=== PATIENT | female | born 1945 | race Caucasian/White ===

== ENCOUNTER 2018-05-06 11:18 | Outpatient (REF) | payer MEDICARE, BC, SELFPAY ==
--- NOTE | 2018-05-06 10:00 | PAPFT_PTH ---
PATIENT: Rosa Hoskins LOC: [facility] U#:[id number] AGE/SX: 72/F ROOM: RE05/06/[address]: MARYANNE Lo : 1945 BED: DIS: 05/06/2018 SPEC #: [id number] RECD: 05/06/18 13:07 STATUS: BONILLA REScarlet #: [id number] CARMEN: 05/06/18 10:[address]: Shannon Mae DEPT: [facility] Cytology RECD BY: Su Olvera Tissues: 1 - CX/ENDOCX FOR PAP SMEARS Procedures: PAP THIN PREP/UVM Screening Comments: [id number]
== END 2018-05-06 11:38 ==
LOC: LBN 11:18
PROVIDERS: Visit Provider Nurse Practitioner Family
DX: R10.2 Pelvic and perineal pain (principal); Z12.4 Encounter for screening for malignant neoplasm of cervix
CPT/HCPCS: 88142; 87086

== ENCOUNTER 2018-06-20 00:38 | Outpatient (CLI) | payer MEDICARE, BC, SELFPAY ==
--- NOTE | 2018-06-20 07:51 | DI.US_ITS ---
SYMPTOMS/DIAGNOSIS: PELVIC PAIN, R10.2 PELVIC ULTRASOUND: There are no prior comparison exams. A transabdominal exam was performed. The patient refused transvaginal imaging. The uterus measures 8.3 x 2 x 4.8 cm. The endometrial stripe measures 2 mm in thickness. No fibroids are seen. The ovaries are normal in size and appearance. No cysts or masses are seen. There is no evidence of free fluid. The bladder is unremarkable. There is a question of mild right hydronephrosis vs prominent extrarenal pelvis. A CT could be performed for further evaluation if clinically indicated.
== END 2018-06-20 00:58 ==
PROVIDERS: PCP Neuromusculoskeletal Medicine & OMM; Visit Provider Nurse Practitioner Family
DX: R10.2 Pelvic and perineal pain (principal)
CPT/HCPCS: 76856

== ENCOUNTER 2021-10-02 11:14 | Outpatient (CLI) | payer MEDICARE, SELFPAY ==
--- NOTE | 2021-10-02 10:37 | DI.RAD_ITS ---
Exam(s) XR KNEE LT 2V AP,LAT EXAM: XR KNEE LT 2V AP,LAT CLINICAL HISTORY: knee pain. TECHNIQUE: 2D digital imaging was performed. COMPARISON: CR XR KNEE RT 2V AP,LAT from 10/02/2021 CR XR STANDING ALIGNMENT from 10/02/2021 FINDINGS: Two views-AP and lateral weight-bearing views There is elgj-oz-loyx narrowing of the medial compartment of the left knee mild medial subluxation of the femoral condyles relative to the tibial plateau. There is no significant narrowing of the later al compartment although there is marginal osteophyte off the lateral aspect the tibial plateau. Some degenerative change also noted in the patellofemoral compartment. No obvious joint effusion. IMPRESSION: Degenerative changes as described above, most prominent in the medial compartment. DATA REPOSITORY: RADIATION DOSE DELIVERED:
--- NOTE | 2021-10-02 10:37 | DI.RAD_ITS ---
Exam(s) XR KNEE RT 2V AP,LAT EXAM: XR KNEE RT 2V AP,LAT CLINICAL HISTORY: knee pain. TECHNIQUE: 2D digital imaging was performed. COMPARISON: CR XR KNEE LT 2V AP,LAT from 10/02/2021 CR XR STANDING ALIGNMENT from 10/02/2021 FINDINGS: Two views-AP and lateral weight-bearing There is bhjr-eb-mttx narrowing of medial compartment, similar to the opposite side and there is also mild medial subluxation femoral condyles on the tibial plateau also on this side. No significant na rrowing of the lateral compartment. Significant degenerative changes patellofemoral compartment. Th ere is also a joint effusion noted. IMPRESSION: Degenerative changes in the medial patellofemoral compartments. Joint effusion. DATA REPOSITORY: RADIATION DOSE DELIVERED:
--- NOTE | 2021-10-02 10:45 | DI.RAD_ITS ---
Exam(s) XR STANDING ALIGNMENT EXAM: XR STANDING ALIGNMENT CLINICAL HISTORY: knee pain. TECHNIQUE: 2D digital imaging was performed. COMPARISON: No exams were available for comparison FINDINGS: Four views There are no fractures. There is honb-fh-thwt narrowing of medial compartments of both knees. Later al compartments exhibit normal height bilaterally although there marginal osteophytes lateral. Hips appear unremarkable. Ankles unremarkable. Bone density normal. No osseous lesions. IMPRESSION: Vuhn-li-efdx narrowing compartment of both knees. Hips appear unremarkable. DATA REPOSITORY: RADIATION DOSE DELIVERED:
== END 2021-10-02 11:15 | disposition home or self-care (01) ==
LOC: DIORS 11:14
PROVIDERS: PCP Neuromusculoskeletal Medicine & OMM; Visit Provider Physician Assistant
DX: M17.11 Unilateral primary osteoarthritis, right knee (principal); M17.12 Unilateral primary osteoarthritis, left knee
CPT/HCPCS: 99202; 73560; 77073

== ENCOUNTER → 2021-12-02 12:52 | Outpatient (BNVA) | payer MEDICARE, SELFPAY | PROVIDERS: PCP Neuromusculoskeletal Medicine & OMM; Referring Provider Neuromusculoskeletal Medicine & OMM; Visit Provider Physician Assistant | DX: Z01.818 Encounter for other preprocedural examination (principal); M17.11 Unilateral primary osteoarthritis, right knee ==

== ENCOUNTER 2021-12-15 03:53 | Outpatient (CLI) | payer MEDICARE, SELFPAY ==
[2021-12-15 10:29] LABS: HCT 42.8 % (36.0-46.0); HGB 13.7 g/dL (11.2-15.7); MCH 28.4 pg (27.0-33.0); MCV 89 fL (80-95); MPV 10.2 fL (8.0-11.0); Platelet Count 258 10^3/uL (130-400); RBC 4.82 10^6/uL (3.93-5.22); RDW 13.6 % (11.7-14.6); RDW-SD 43.9 fL; WBC 8.03 10^3/uL (4.4-10.8)
[2021-12-15 11:12] LABS: Anion Gap 8.5 mmol/L (3-11); BUN 29 mg/dL (7-18); CO2 30.5 mmol/L (21.0-32.0); CREATININE 1.1 mg/dL (0.55-1.02); Calcium 9.5 mg/dL (8.5-10.1); Chloride 103 mmol/L (98-107); Estimated GFR 48.42 (mL/min/1.73m2); Glucose 110 mg/dL (74-106); Potassium 4.5 mmol/L (3.5-5.1); Sodium 142 mmol/L (136-145)
[2021-12-15 12:49] LABS: Source Nasal/Nares
[2021-12-15 15:10] LABS: COVID-19 PCR Negative (Negative)
== END 2021-12-15 03:54 | disposition home or self-care (01) ==
LOC: LBO 03:53
PROVIDERS: PCP Neuromusculoskeletal Medicine & OMM; Visit Provider Student in an Organized Health Care Education/Training Program
DX: M17.11 Unilateral primary osteoarthritis, right knee (principal); Z01.818 Encounter for other preprocedural examination; Z20.822 Contact with and (suspected) exposure to COVID-19
CPT/HCPCS: 36415; 80048; 85027; 87635

== ENCOUNTER 2021-12-16 09:28 | Day surgery (SDC) | payer MEDICARE, SELFPAY ==
[2021-12-16] VITALS (11 sets, daily range): BP systolic 115–157; BP diastolic 46–81; PULSE 64–84; RESP 10–21; TEMP 36.1–37; O2SAT 94–98; BMI 38.7
--- NOTE | 2021-12-16 06:37 | W.PM.DSUDISC ---
Discharge Plan Disposition Patient Disposition: HOME Condition: Good Discharge Details Reason For Visit: Right TKA Attending Provider: Lucian Barnard Primary Care Provider: Sridhar Trinidad Home Meds and New Rx's Prescriptions: New acetaminophen 500 mg capsule 1,000 mg PO Q8H PRN PRNQty: 90 0RF aspirin 81 mg tablet,delayed release (DR/EC) 81 mg PO BID Qty: 60 0RF celecoxib [Celebrex] 200 mg capsule 200 mg PO BID Qty: 60 0RF pantoprazole [Protonix] 40 mg tablet,delayed release (DR/EC) 40 mg PO DAILY Qty: 30 0RF gabapentin 300 mg capsule 300 mg PO QHS Qty: 14 0RF oxycodone 5 mg tablet 5 mg PO Q4H PRNQty: 18 0RF ondansetron 4 mg tablet,disintegrating 4 mg PO Q8H PRNQty: 10 0RF Continued multivitamin [Daily Multi-Vitamin] tablet 1 tab PO DAILY aspirin [Adult Low Dose Aspirin] 81 mg tablet,delayed release (DR/EC) 81 mg PO DAILY ascorbic acid (vitamin C) 250 mg tablet,chewable 250 mg PO DAILY lisinopril 40 mg tablet 40 mg PO DAILY glucosamine-chondroitin [Osteo Bi-Flex] 250-200 mg tablet 2 tab PO TID Label Comments: pt stated she is no longer taking it ICaps AREDS2 250 mg-200 unit -12.5 mg-1 mg capsule 1 cap PO DAILY magnesium oxide 500 mg tablet 500 mg PO DAILY omega 0-xic-qdl-fish oil [Fish Oil] 1,000 mg (120 mg-180 mg) capsule 1 cap PO DAILY Coricidin HBP Cold and Flu 2-325 mg tablet 1 tab PO ONCE Discharge Instructions Additional Instructions: Total Knee Discharge Instructions Activity: The most important activity is to walk. You should try to take short walks a few times a day. It is important that when resting you work on keeping the knee straight. Avoid putting a pillow behind the knee as this will encourage flexion. Work on range of motion exercises as provided by Physical Therapy. - Start outpatient physical therapy within 2 weeks. - You should wear the HERO hose on both legs for 2 weeks. You may remove these at night. You may also use any compression sock in place of the HERO hose. - Utilize [employer] to review exercises, see videos on exercises and obtain basic information pertaining to your surgery and your recovery. Dressing: Remove the Lucius wrap by 2 days after your surgery and put on the HERO stocking given to you from the hospital. Keep the surgical dressing (underneath the LUCIUS wrap) in place for at least one week. After the first week it may be removed and replaced with light gauze and tape or nothing. The wound and dressing may get wet after 3 days but avoid soaking the dressing or otherwise it will need to be changed. Many people prefer covering the dressing with cling wrap (saran wrap) to minimize it from getting soaked. If it gets wet, just pat dry. If it starts to peel off then it will need to be changed. Medications: - You should take Tylenol and anti-inflammatory Celebrex as your primary pain control medications. If the Celebrex is too expensive or not covered, please call the office for another alternative (Advil/Ibuprofen or Naproxen/Aleve) - You have been prescribed a stronger pain medication Oxycodone for breakthrough pain, take as needed as prescribed. - You have also been prescribed a stomach acid reduction agent Pantoprozole to help reduce stomach acid and reflux. - You have been prescribed Gabapentin to take at night for restlessness and nerve pain. - You will be taking [Aspirin 81mg twice a day] for DVT prevention unless instructed otherwise. - If you have constipation you should take Colace or Miralax (both yekj-lmt-btqyuvt). It takes most people 3-4 days to have a bowel movement. Follow-up: 2 weeks If you have any acute concerns or questions, please do not hesitate to contact the office at [phone]. You may contact Dr. Barnard with any questions after hours through the hospital at [phone] or on his cell phone at [phone]. Stand Alone Forms: Anesthesia Discharge Inst., Anes.Nerve Block Instructions, Siri Browne (DSU) Referrals: Lucian Barnard MD [ [facility] STAFF PHYSICIAN] - 01/01/22 11:45 am Equipment/Supplies: Walker Activity:: Activity as Tolerated Remove Dressings/Wound Care:: Do Not Remove Shower/Bathe:: 72 hours Diet:: As Tolerated Discharge Orders Discharge Orders: Discharge Order (Routine); Ordered 12/16/21 Ordered By: Lucian Barnard DS: Diagnosis Discharge Diagnosis (1) Primary osteoarthritis of right knee: Status: Acute
--- NOTE | 2021-12-16 08:42 | W.ANESPRE ---
General Info Date of Service Date Performed: 12/16/21 Height: 5 ft 5.5 in Weight: 107.048 kg Body Mass Index (BMI): 38.7 Surgical Procedure: Operation Date: 12/16/21 13:10 Proposed Procedure Side Surgeon p Knee Total Arthroplasty Cemented CR Right Lucian Barnard MD Meds Allergies and Home Medications Allergies Allergy/AdvReac Type Severity Reaction Status Date / Time No Known Allergies Allergy Verified 12/16/21 09:59 Home Medication Medication Instructions Recorded ascorbic acid (vitamin C) 250 mg 250 mg PO DAILY 05/06/18 chewable tablet aspirin 81 mg tablet,delayed 81 mg PO DAILY 05/06/18 release (Adult Low Dose Aspirin) glucosamine-chondroitin 250 mg-200 2 tab PO TID 05/06/18 mg tablet (Osteo Bi-Flex) lisinopril 40 mg tablet 40 mg PO DAILY 05/06/18 multivitamin (Daily Multi-Vitamin 1 tab PO DAILY 05/06/18 tablet) chlorpheniramine-acetaminophen 2 1 tab PO ONCE 10/02/21 mg-325 mg tablet (Coricidin HBP Cold and Flu) magnesium oxide 500 mg tablet 500 mg PO DAILY 10/02/21 omega 1-hwn-dox-fish oil 1,000 mg 1 cap PO DAILY 10/02/21 (120 mg-180 mg) capsule (Fish Oil) vit C 250 mg-vit E 200 unit-zinc 1 cap PO DAILY 10/02/21 ox 12.5 cs-bdkfry-cemjmx-zeax capsule (ICaps AREDS2) acetaminophen 500 mg capsule 1,000 mg PO Q8H PRN PRN #90 caps 12/16/21 aspirin 81 mg tablet,delayed 81 mg PO BID #60 tabs 12/16/21 release celecoxib 200 mg capsule (Celebrex) 200 mg PO BID #60 caps 12/16/21 gabapentin 300 mg capsule 300 mg PO QHS #14 caps 12/16/21 oxycodone 5 mg tablet 5 mg PO Q4H PRN #18 tabs 12/16/21 pantoprazole 40 mg tablet,delayed 40 mg PO DAILY #30 tabs 12/16/21 release (Protonix) Current Visit Medications: Current Medications Generic Name Dose Route Start Last Admin Trade Name Freq PRN Reason Stop Dose Admin Acetaminophen 1,000 mg 12/16/21 06:00 Acetaminophen 500 Mg Tab PO 12/16/21 18:00 PREOP [facility] Acetaminophen 1,000 mg 12/16/21 08:30 Acetaminophen 500 Mg Tab PO TID [facility] Aspirin 81 mg 12/16/21 08:30 Aspirin E.C. 81 Mg Tabec PO BID [facility] Celecoxib 400 mg 12/16/21 06:00 Celecoxib 200 Mg Cap PO 12/16/21 18:00 PREOP [facility] Celecoxib 200 mg 12/16/21 08:30 Celecoxib 200 Mg Cap PO BID [facility] Gabapentin 300 mg 12/16/21 06:00 Gabapentin 300 Mg Cap PO 12/16/21 18:00 PREOP [facility] Gabapentin 300 mg 12/16/21 22:00 Gabapentin 300 Mg Cap PO HS [facility] Hydromorphone HCl 0.5 mg 12/16/21 06:34 Hydromorphone 2 Mg/Ml Vial IVP Q2H PRN PRN Tranexamic Acid 1,000 mg/ 60 mls @ 360 mls/hr 12/16/21 06:00 Sodium Chloride IVPB 12/16/21 16:00 PREOP [facility] Ringer's Solution 1,000 mls @ 80 mls/hr 12/16/21 06:00 IV 12/16/21 23:59 INFUSION [facility] Cefazolin Sodium/Dextrose 2 gm in 50 mls @ 100 mls/hr 12/16/21 06:00 Ancef Duplex IVPB 12/16/21 23:59 PREOP [facility] Cefazolin Sodium/Dextrose 1 gm in 50 mls @ 100 mls/hr 12/16/21 20:00 Ancef Duplex IVPB 12/17/21 12:29 Q8H [facility] IV Miscellaneous Supplies 1 each 12/16/21 06:00 Iv Access IV 12/16/21 23:59 DIRECTED [facility] Non-Formulary Medication 40 mg 12/17/21 08:30 Lisinopril PO DAILY [facility] Ondansetron HCl 4 mg 12/16/21 06:34 Ondansetron 4 Mg/2 Ml Vial IVP Q6H PRN PRN Nausea Oxycodone HCl 0 mg 12/16/21 06:34 Oxycodone 5 Mg Tab PO Q3H PRN PRN Pain Pantoprazole Sodium 40 mg 12/16/21 07:30 Pantoprazole 40 Mg Tabcr PO DAILY@0730 [facility] Polyethylene Glycol 17 gm 12/16/21 06:34 Polyethylene Glycol 3350 17 Gm Packet PO BID PRN PRN Constipation Sodium Chloride 0 ml 12/16/21 06:00 Normal Saline Flush 10 Ml Syr IV 12/16/21 23:59 PRN PRN Sodium Chloride 0 ml 12/16/21 06:00 Normal Saline 10 Ml Vial IJ 12/16/21 23:59 DIRECTED PRN Sterile Water 0 ml 12/16/21 06:00 Water,Injection,Sterile 10 Ml Vial IJ 12/16/21 23:59 DIRECTED PRN PFSH Active Problems Active Problems: Problem Status Onset Code Primary osteoarthritis of left knee M17.12 Primary osteoarthritis of right knee M17.11 Hypertension I10 Family history of ovarian cancer Z80.41 Pelvic pain R10.2 Surgical History Surgical History Ildefonso's deformity Unsure which side Prior to S/P appendectomy Status post arthroscopy of right shoulder Reports having bone spurs removed Tobacco Smoking/Tobacco Use Status: Never Alcohol Alcohol Intake: current Alcohol intake frequency: holidays/special occasions only Alcohol type: wine Substance Use Substance use: Never Substance use type: does not use Prental History History 2 Para 2 Hx # Term Pregnancies Multiple births Hx # Pregnancies Ectopic pregnancies AB induced Hx Number of Living Children AB spontaneous Vital Signs and Lab Results Vital Signs Most Recent Vital Signs in EMR: Temp Pulse Resp BP Pulse Ox 37.0 C 64 17 157/63 H 98 12/16/21 09:48 12/16/21 09:48 12/16/21 09:48 12/16/21 09:48 12/16/21 09:48 Lab Results Blood Type / Crossmatch: No Data to Display Complete Blood Count: White Blood Count 8.03 10^3/uL (4.4-10.8) 12/15/21 10:10 Red Blood Count 4.82 10^6/uL (3.93-5.22) 12/15/21 10:10 Hemoglobin 13.7 g/dL (11.2-15.7) 12/15/21 10:10 Hematocrit 42.8 % (36.0-46.0) 12/15/21 10:10 Platelet Count 258 10^3/uL (130-400) 12/15/21 10:10 Complete Metabolic Panel: Sodium Level 142 mmol/L (136-145) 12/15/21 10:10 Potassium Level 4.5 mmol/L (3.5-5.1) 12/15/21 10:10 Chloride Level 103 mmol/L (98-107) 12/15/21 10:10 Carbon Dioxide Level 30.5 mmol/L (21.0-32.0) 12/15/21 10:10 Blood Urea Nitrogen 29 mg/dL (7-18) H 12/15/21 10:10 Creatinine 1.1 mg/dL (0.55-1.02) H 12/15/21 10:10 Estimated GFR/1.73 m2 48.42 (mL/min/1.73m2) 12/15/21 10:10 Calcium Level 9.5 mg/dL (8.5-10.1) 12/15/21 10:10 Glucose Level 110 mg/dL (74-106) H 12/15/21 10:10 Liver Function Panel: No Data to Display Coagulation Panel: No Data to Display Cardiac Panel: No Data to Display Arterial Blood Gas: No Data to Display Venous Blood Gas: No Data to Display Pancreas Panel: No Data to Display Thyroid Panel: No Data to Display Infectious Disease: Coronavirus (COVID-19)(PCR) Negative (Negative) 12/15/21 10:25 Coronavirus 2019 Source Nasal/Nares 12/15/21 10:25 Blood Cultures: No Data to Display Toxicology Panel: No Data to Display Anesthesia Assessment and Plan Anesthesia History Personal History: No History of Anesthesia Complications Family History: No Family History of Anesthesia Complications Exercise Tolerance Exercise Tolerance: Metabolic Equivalents>4 Cardiac & Pulmonary Exam Cardiac Exam: Normal S1/S2 Heart Sounds Pulmonary Exam: Clear Bilateral Breath Sounds Implantable Cardiac Device Does patient have a Pacemaker or an ICD?: No Airway Exam Known Difficult Airway: No Mallampati Class: 3 Mouth Opening: Narrow (< 3cm) Thyromental Distance: Greater than 3 cm Neck Range of Motion: Full ROM Neck Circumference: Normal Teeth Condition: Normal Dentition ASA Classification ASA Score: ASA 3 Emergency Case?: No NPO Status NPO Status: NPO Clears >2 hours, Solids >8 hours Anesthesia Plan Resuscitation Status: Full Code Anesthesia Technique: Spinal Anesthesia Airway Planned: Natural Airway Pain Management: Surgeon and patient request nerve block Monitors Used: Standard Monitors Preoperative Comments:: 76 yo female for knee replacement. Sig PMHx: HTN (lisinopril), never smoker, occ EtOH.
[2021-12-16] MEDS: Acetaminophen 500 MG TAB 1000 MG PO (10:12)
[2021-12-16] MEDS: Gabapentin 300 MG CAP PO (10:12)
[2021-12-16] MEDS: Celecoxib 200 MG CAP 400 MG PO (10:13)
[2021-12-16] MEDS: Lactated Ringers 1,000 ML 80 ML IV (10:33)
--- NOTE | 2021-12-16 11:32 | W.ANESNERVE ---
Nerve Block Single Injection Procedure Date and Time Date Performed: 12/16/21 Procedure Start: 11:16 Location Where Procedure Performed Procedure Location: Day Surgery Unit Reason Performed: Postoperative Analgesia Requesting Provider: Lucian Barnard Timeout Performed Timeout Performed: Yes Monitoring Used ECG, Blood Pressure and SpO2 Sterility Sterility: Hand Hygiene, Surgical Cap, Surgical Mask, Sterile Gloves and Chlorhexidine Sedation Given During Procedure Sedation Given (Indicate Dose Given): No Sedation given Patient Mental Status Patient Mental Status: Awake Nerve Block 1st Nerve Block: Laterality: Right Block Type: Adductor Canal Needle / Catheter Used: 100mm SonoPlex II Local Anesthetic Bolus (Indicate Dose Given): Lidocaine used for local infiltration of skin, Injected in 3-5ml increments after negative blood aspiration and Bupivacaine 0.375% Dose:: 10 mL Additives (Indicate Dose Given): None Ultrasound: Sterile probe cover and gel used Ultrasound Image Saved?: Yes Nerve Stimulator: Not Used Paresthesia: None Procedure Tolerated: No Complications Procedure Outcome: Successful Performed By: bayron chaney Supervised By: Jose Maria Haddad
[2021-12-16] MEDS: ceFAZolin 2 GM/50 ML BAG IVPB (11:54)
[2021-12-16] MEDS: HYDROmorphone 2 MG/ML VIAL IVP ×2 (13:48→14:20)
[2021-12-16] MEDS: Normal Saline 10 ML VIAL IJ (13:48)
--- NOTE | 2021-12-16 14:30 | W.ANESPOSTOP ---
Postoperative Evaluation Date, Time and Location Date Performed: 12/16/21 Time Performed: 14:30 Patient Location: PACU Vital Signs Most Recent Imported Vital Signs: Most Recent Vital Signs Temp Pulse Resp BP Pulse Ox 36.6 C 70 17 153/68 H 95 12/16/21 14:17 12/16/21 14:17 12/16/21 14:17 12/16/21 14:17 12/16/21 14:17 Pain Score Most Recent Pain Score: Most Recent Pain Score Pain Level 3 12/16/21 14:17 Assessment Mental Status: Awake (Alert & Oriented to Patient Baseline) Airway and Respiratory Function: Patent airway with normal (patient baseline) respiratory exam Cardiovascular Function: Hemodynamically Stable Hydration Status: Adequately Hydrated Nausea & Vomiting: No Nausea or Vomiting Pain: Pain is tolerable per patient Peripheral Nerve Block: Regional nerve block not resolved at time of post operative discharge
--- NOTE | 2021-12-16 15:26 | IN_ITS ---
Date of service: 12/16/21 Time of Service: 15:26 PT Notes Visit Reasons: Right TKA Physical Therapy Day Surgery Initial Evaluation Date: 12/16/2021 Referring Doctor: JANINE Root PT Orders: PT CONSULT: S/p Ortho surgery Precautions: WBAT on right LE with AD. Patient Profile/Admitting Diagnosis: Rosa is a 76-year-old female with primary unilateral osteoarthritis of the right knee is status post right cemented total knee arthroplasty on postoperative day 0. PMHX: Surgical History?(Updated 12/02/21 @ 13:17 by Summer Jimenez) Ildefonso's deformity Unsure which side Prior to 1990sS/P appendectomy Status post arthroscopy of right shoulder Reports having bone spurs removed Social History/Home Situation: Lives alone in a private home with 3 steps to enter. Will have her sister in law fly in from [place] to be with her for a we ek as she recovers. Retired tech ed teacher. Equipment Owned/DME: [facility] Subjective: Pleasant and cooperative. Agreeable to PT consult. Complained of waves of nausea accompanied by 5/10 headache throughout mobility assessment requiring several seated rests. Nurses Carina and Herminia assisting with wheelchair follow for safety. Reports 3/10 pain in the i inner side of her right knee. Complained of increased sensitivity to light requiring the use of her sunglasses inside the day surgery unit. Objective: General Observation: Supine in bed. JOSELO wraps to right LE. TEDS to left leg. Mental Status: Alert and oriented x4 Pain: 3/10 pain in medial knee; 5/10 headache ROM: Right Lower Extremity: Hip flexion WFL. Hip abduction WFL. Knee flexion 10 degrees to 90 degrees. Knee extension -10 degrees. Ankle dorsiflexion WFL. Ankle plantarflexion WFL. Left Lower Extremity: Hip flexion WFL. Hip abduction WFL. Knee flexion WFL. Ankle dorsiflexion WFL. Ankle plantarflexion WFL. Strength: Right Lower Extremity: Hip flexors 4/5. Hip abductors 4/5. Knee flexors 3-/5. Knee extensors 3-/5. Ankle dorsiflexors 5/5. Ankle plantarflexors 5/5. Left Lower Extremity:Hip flexors 5/5. Hip abductors 5/5. Knee flexors 5/5. Knee extensors 5/5. Ankle dorsiflexors 5/5. Ankle plantarflexors 5/5. Sensation: Intact as to pain and light pressure in bilateral lower extremities Bed Mobility/Transfers: Supine to sit standby assist Sit to stand contact-guard assist Stand to sit contact-guard assist Bed to chair contact-guard assist Gait: Tolerated level surface ambulation of 10 feet +15 feet +20 feet + 50 feet using front wheeled walker with wheelchair follow by nurse Ferreira for safety. Reported waves of nausea requiring seated rests of about 5-10 minutes each subside. Nurse Hope came in to administer IV Zofran which provided short relief. Nurse sample maker original came in to check patient while resting. Patient managed to walk back after negotiating practice steps from day surgery hallway back to her room using walker with diminished nausea. Stairs: After some 10 minutes of rest, patient was able to tolerate up and down 3 x 4 inch steps and a 2 x 6 inch steps while holding onto bilateral rails with step- to gait pattern. Balance: Static Sitting: Normal Dynamic Sitting: Fair Static Standing: Fair Dynamic Standing: Fair Special Tests: Mobility Limitations Standardized Measure [facility] AM-PAC 6 clicks Basic Mobility Inpatient Short Form: Raw Score: 18 CMS Score: 47% deficit Informed Consent/Education: Patient instructed in purpose of PT consult. Education and training on initial set of exercises that can be done at home have been completed with patient with referrence to the [employer] angel Assessment: Patient requires the use of a front wheeled walker to maximize independence and reduce fall risk. A mobility assessment was extended today due to patient's intermittent report of nausea and headache. Did explore with patient, Nurse Lim, and Nurse Supervisor Color [employer] Mixing the option of staying overnight if she does not feel safe and stabilized enough to go home. Patient presents with clinical signs and symptoms consistent with current/admitting diagnoses that have resulted to mobility limitations, gait instability, generalized weakness, and impairment of motor control as demonstrated by the following impairment level findings: 1. Decreased strength to right knee major muscle groups 2. Impaired standing balance 3. Limitation of joint range of motion in right knee Impairments are contributing to the following functional limitations: 1. Inability to safely ambulate without assistive device 2. Increase completion time for mobility ADL performance 3. Increased fall risk Patient is assessed as a 29088 moderate complexity based on the following: History: 76-year-old female with impairment level findings, functional limitations, and past medical history as indicated above Examination: Demonstrable impairment in strength, balance, and mobility level with underlying impairments and functional limitations as documented above Presentation: Evolving Decision Makin moderate complexity Goals: N/A. PT evaluation and 1-2 treatment sessions only for functional mobility training using recommended AD and for HEP instruction. Plan of Care/Treatment Plan: N/A. PT evaluation and 1-2 treatment session only for functional mobility training using recommended AD and for HEP instruction. DISCHARGE RECOMMENDATIONS: [] Home with no services [] [] Home with services [specify] [X] Home with outpatient PT. Home when medically cleared by orthopedic surgeon. Will benefit from outpatient PT services in order to maximize functional outcomes and facilitate return to independent community ambulation and ADL performance without an assistive device. [] SNF for continued rehabilitation [] [] Penitentiary Care [] [] SNF versus LTC based on ability to participate and progress [] [X] Did explore with patient, Nurse Brit, and Nurse Supervisor [employer] Mixing the option of staying overnight if she does not feel safe and stabilized enough to go home. TREATMENT CODE/TIME: 00673 x 30 minutes, 50951 x 49 minutes beginning at 15:26 PM. Thank you for the opportunity to participate in the care of this patient. Monica Griffin PT, DPT, CLT [facility] [place], [place]
[2021-12-16] MEDS: Ondansetron 4 MG/2 ML VIAL IVP (16:01)
--- NOTE | 2021-12-16 21:58 | W.PM.OP ---
Date of service: 12/16/21 Time of Service: 13:00 Operative Note Operative Note DATE OF PROCEDURE: 12/16/21 PRE-OP DIAGNOSIS: Right Knee Osteoarthritis POST-OP DIAGNOSIS: same PROCEDURE: Right Total Knee Replacement SURGEON: Lucian Barnard PEST CONTROL APPLICATOR: Elen Garcia ANESTHESIA TYPE: Spinal Refer to Anesthesia Record ESTIMATED BLOOD LOSS: 50 PATHOLOGY: none sent COMPLICATIONS: None Patient was transported to: PACU Patient's condition: stable Implants: 1. Depuy Attune Cruciate Retaining Femoral Component, Size 6 Narrow 2. Depuy Attune Rotating Platform Tibial Component, Size 4 3. Depuy Attune 6x10 CR,RP Poly 4. Depuy Attune Patellar Component, Size 35 Indications: I have seen Rosa in clinic for symptoms of knee arthritis, confirmed with radiographic findings. She has exhausted nonoperative methods and was having significant limitations in daily function and desired better function and less pain. I discussed the technical details of a knee replacement. I explained the risks of the procedure to include, but not limited to, bleeding, infection, pain, stiffness, fracture, damage to nerves and vessels, damage to muscles and tendons, loosening, need for repeat procedure, blood clot and cardiopulmonary demise. Despite these risks, Rosa elected to proceed. Findings: There was significant signs of arthritis throughout the knee. Procedure Description: Rosa was greeted in the preoperative holding area where the correct side was identified and marked. The consent was reviewed with the patient and signed. The history and physical was updated. All questions were answered. Preoperative mediacations were administered: Acetaminophen 1000mg, Celebrex 400mg, and Gabapentin 300mg. An adductor canal block was then administered by the anesthesia team in the PACU. Rosa was taken back to the operating room. A spinal anesthestic was then administered. The patient was placed into the supine position on the operating room table. A nonsterile tourniquet was placed high onto the leg but only used for cementing. Posts were placed for positioning during the procedure. All bony prominences were well padded. Prophylactic antibiotics in the form of Cefazolin were administered. 1g of Tranxemic Acid was given intravenously within 30 minutes of incision. The right leg was then prepped with Chloraprep and draped in a standard fashion with impervious stockinette and extremity drape. A second prep with Chloraprep was performed prior to placing Ioband. A timeout to confirm correct identity, side and site, procedure, allergies, anesthesia, and medical concerns was performed. With the knee in some flexion, a midline incision was made overlying the knee. Full thickness skin flaps were raised once the extensor mechanism was encountered. These were raised medially and laterally. Any bleeding was controlled with electrocautery. Once the extensor mechanism was fully exposed, a medial parapatellar arthrotomy was performed in a flexed position. All bleeding from the arthrotomy and the geniculate arteries was coagulated. A medial subperiosteal peel was performed with electrocautery to the midcoronal plane. Due to the significant varus deformity the entire medial tibial plateau was exposed. The fat pad was removed while keeping the patellar tendon protected. The anterior distal femur synovium was removed for later visualization. The ACL and PCL were resected and the anterior horn of the lateral meniscus was transected. The knee was then flexed with the patella everted. Large osteophytes from the tibia were removed. Large osteophytes from the femur were removed. Using a step drill, and based on preoperative templating, the femoral canal was entered. This was done with a step drill without any difficulty. The intramedullary distal femoral cut guide was inserted, set to a 4 degree valgus cut and 8mm cut thickness. The distal femoral cut guide was then held in position and pinned. With the soft tissues protected, the distal cut was performed. This was passed over a few times to ensure a planar cut. I then turned attention to the tibia. The extramedullary guide was placed onto the leg. The distal aspect was slid medial to adjust for position of center of ankle and stay in line with shaft of the tibia. Approximately 3-5 degrees of posterior slope was kept in the proximal cutting guide. The center of the guide was aligned with the PCL. The stylus was used to assess cut thickness. The medial side, most involved side, was set for a 4mm cut. This was then held in position and pinned into place with 2 additional pins and a cross pin for stability. The medial and lateral collateral ligaments were protected and the cut was performed. With this completed, it was assessed and noted to be of appropriate dimensions. The guide was removed. A spacer block was inserted and the knee was brought into extension. The 8mm spacer block provided full extension, without hyperextension and with stability of both the medial and lateral collateral ligaments was assessed. The pins from the femur and the tibia were then removed. The distal femur was then sized. The anterior stylus was placed onto the lateral ridge of the anterior femur. This indicated a size 6 femur. The external rotation of the guide was adjusted to 3 degrees to match the epicondylar axis, perpendicular to [place]?s line. The 4-in-1 cutting guide was the placed. The posterior medial femur cut was evaluated and appeared of good thickness. The spacer block was inserted underneath the cutting guide and stability was confirmed in 90 degrees of flexion. An irma wing was used to confirm appropriate position of the anterior cut to avoid notching. This cutting guide was ensured to be flush on the cut surface and then pinned into place with headed pins. While protecting the soft tissues, quad tendon, and collateral ligaments, the anterior and posterior cuts were performed with a saw. The central two pins were removed and the posterior and anterior chamfers were cut next. The notch-cutting guide was placed. This was pinned to lateralize the femoral component as much as possible while keeping it flush on the cut surface. This was then pinned into position. A reciprocating saw was used to make the small notch cut. A trial CR femoral component was then inserted, impacted down to the cut surfaces, and the lug holes were drilled. A provisional trial tibial component was placed and the knee was brought through range of motion. The polyethylene was trialed until there was good flexion and extension with excellent stability to the medial and lateral collaterals. The patella was tracking without thumbs. The tibial cut surface was fully exposed. The medial and lateral menisci were removed. The tibia was then sized as a 4. The tibia had been previously marked during trialing to correspond to the center of the tibial component to help with rotation. The trial was aligned to this iris, approximately rotated to the medial 1/3rd of the tibial tubercle. The trial was pinned into place. The tibia was prepared with a reamer and a keel punch. The knee was then brought into extension and the patella was measured as 25mm. Using the patellar clamp and cut guide, this was resected to a flat surface with at least 13mm of thickness remaining. The size 35 patella fit the best. This was oriented and then clamped into position. The lugs were drilled. The trial components were removed. The final components, except for the polyethylene were opened on the back table. The periosteal and capsular tissues, especially posteriorly, around the knee were then systematically injected with a periarticular cocktail consisting of 246mg of Ropivacaine, 0.5mg of Epinephrine, 0.08mg of Clonidine, and 30mg of Ketorolac, diluted to 100cc.. The tourniquet was then inflated to 275mmHg. The knee was thoroughly irrigated with a pulse lavage and dried. On the back table, with the implants opened, the cement was mixed. 2 batches of medium viscosity cement were prepared with vacuum assistance. After the cement was ready it was placed on to the back side of the tibial component. A small amount was placed onto the posterior flange of the femur. Cement was manual pressurized and impregnated into the cut surface of the tibia. The tibial component was then inserted into the cut surface and impacted into position. Excess cement was removed and the component was reimpacted. Again, excess cement was removed and our attention was then turned to the femur. The femoral cut surface was once again dried and cement was manually impacted into the cut surface. The femoral component was lined with the lug holes and impacted. Excess cement was removed. It was ensured to be down against the cut surface. The trial polyethylene was then inserted and the leg was brought out into full extension for the duration of the cement curing process, approximately 18min. Cement was lastly manually impacted into the cut surface of the patella and the patellar button was clamped into position and held. During this process attention was turned to the gutters of the knee and for all interfaces for any excess cement. While the cement was hardening, the knee was irrigated with Surgiphor Betadine solution. It was allowed to sit in the knee for 3 minutes and then it was thoroughly irrigated with saline. After the cement had finally cured, approximately 18min, the clamp was removed from the patella and the knee was taken through range of motion. A size 10mm polyethylene component provided the best range of motion and stability with less than 2mm gapping with medial and lateral stress and full extension without significant hyperextension. The patella was tracking with a no-thumbs technique. The trial poly was removed and once again the knee was checked for any loose, excess, or errant cement. The poly component was then inserted into position after cleaning and drying the tibial tray. The capsule was then reapproximated with a No. 1 Vicryl at multiple locations. The capsule was finally closed with a No. 2 Stratafix, barbed suture. The tourniquet was then released and the arthrotomy appeared watertight without significant bleeding. The second dosing of 1g TXA was started. Deep tissues were then reapproximated with 0 Vicryl and 2-0 Vicryl. The skin was closed with a running 3-0 Monocryl in a subcuticular fashion. This was reinforced with skin glue. A Mepilex silver dressing was applied along with a [id number]-[id number] JOSELO wrap. A CryoCuff was applied. Rosa was transferred to the hospital bed without difficulty an suffering no apparent complication. Rosa has a good prognosis. Physical therapy will start today and without restrictions, weight-bearing as tolerated. Aspirin 81mg BID will be used for DVT prophylaxis.
== END 2021-12-16 18:25 | disposition home or self-care (01) ==
PROVIDERS: PCP Neuromusculoskeletal Medicine & OMM; Visit Provider Student in an Organized Health Care Education/Training Program
PROC: (CPT 27447; principal; 2021-12-16 13:00)
DX: M17.11 Unilateral primary osteoarthritis, right knee (principal); I10 Essential (primary) hypertension
CPT/HCPCS: 27447; C1776; 76942; 97163; 97530; J0690; J1100; J1170; J2370; J2405; J2704

== ENCOUNTER 2022-01-01 11:48 | Outpatient (CLI) | payer MEDICARE, SELFPAY ==
--- NOTE | 2022-01-01 11:00 | DI.RAD_ITS ---
Exam(s) XR KNEE RT 1V XR STANDING ALIGNMENT EXAM: XR STANDING ALIGNMENT and XR knee RT 1 V CLINICAL HISTORY: 1ST POST OP R TKA. TECHNIQUE: 2D digital imaging was performed. Four images were obtained. COMPARISON: CR XR KNEE LT 2V AP,LAT from 10/02/2021 CR XR KNEE RT 2V AP,LAT from 10/02/2021 CR XR STANDING ALIGNMENT from 10/02/2021 FINDINGS: BONES: The hips are well maintained. Since the prior examination the patient has undergone a right t otal knee arthroplasty. The orthopedic hardware appears in good position. No evidence of hardware f ailure is seen. Enthesophytes are seen at both the superior and inferior patella. In the left knee moderate degenerative changes are present with joint space narrowing medially and periarticular spurr ing laterally. The ankles are well maintained.The right lower extremity measures 94 cm. The left lo wer extremity measures 92 cm. SOFT TISSUE: Atherosclerosis is present. IMPRESSION: Interval placement of a right total knee arthroplasty. DATA REPOSITORY: RADIATION DOSE DELIVERED:
== END 2022-01-01 11:49 | disposition home or self-care (01) ==
LOC: DIORS 11:48
PROVIDERS: PCP Neuromusculoskeletal Medicine & OMM; Visit Provider Student in an Organized Health Care Education/Training Program
DX: Z96.651 Presence of right artificial knee joint (principal); Z47.1 Aftercare following joint replacement surgery
CPT/HCPCS: 73560; 77073

== ENCOUNTER → 2022-01-30 10:29 | Outpatient (BNVA) | payer MEDICARE, SELFPAY | PROVIDERS: PCP Neuromusculoskeletal Medicine & OMM; Referring Provider Neuromusculoskeletal Medicine & OMM; Visit Provider Student in an Organized Health Care Education/Training Program | DX: Z47.1 Aftercare following joint replacement surgery (principal); Z96.651 Presence of right artificial knee joint ==

== ENCOUNTER → 2022-02-27 10:20 | Outpatient (BNVA) | payer MEDICARE, SELFPAY | PROVIDERS: PCP Neuromusculoskeletal Medicine & OMM; Referring Provider Neuromusculoskeletal Medicine & OMM; Visit Provider Student in an Organized Health Care Education/Training Program | DX: Z47.1 Aftercare following joint replacement surgery (principal); Z96.651 Presence of right artificial knee joint ==

== ENCOUNTER 2022-12-18 10:34 | Outpatient (CLI) | payer MEDICARE, SELFPAY ==
--- NOTE | 2022-12-18 11:25 | DI.RAD_ITS ---
Exam(s) XR KNEE RT 2V AP,LAT EXAM: XR KNEE RT 2V AP,LAT CLINICAL HISTORY: ANNUAL F/U R TKA. TECHNIQUE: 2D digital imaging was performed. Two images were obtained. And lateral views were obtai linda. COMPARISON: CR XR KNEE LT 2V AP,LAT from 10/02/2021 CR XR KNEE RT 1V from 01/01/2022 FINDINGS: BONES: There are stable post operative changes present. No fracture or dislocation. JOINTS: The orthopedic hardware is in good position. No evidence of hardware loosening. SOFT TISSUE: Mild atherosclerosis. IMPRESSION: Stable right total knee replacement. DATA REPOSITORY: RADIATION DOSE DELIVERED:
== END 2022-12-18 10:35 | disposition home or self-care (01) ==
LOC: DIORS 10:34
PROVIDERS: PCP Neuromusculoskeletal Medicine & OMM; Referring Provider Neuromusculoskeletal Medicine & OMM; Visit Provider Student in an Organized Health Care Education/Training Program
DX: Z47.1 Aftercare following joint replacement surgery (principal); Z96.651 Presence of right artificial knee joint
CPT/HCPCS: 99213; 73560

== ENCOUNTER → 2023-10-21 14:06 | Outpatient (BNVA) | payer MEDICARE, SELFPAY | PROVIDERS: PCP Family Medicine; Referring Provider Family Medicine | DX: M17.12 Unilateral primary osteoarthritis, left knee (principal) | CPT/HCPCS: 20610; J7318 ==

== ENCOUNTER 2023-12-20 14:03 | Outpatient (CLI) | payer MEDICARE, SELFPAY ==
--- NOTE | 2023-12-20 10:00 | DI.RAD_ITS ---
Exam(s) XR KNEE RT 2V AP,LAT EXAM: XR KNEE RT 2V AP,LAT CLINICAL HISTORY: ANNUAL F/U R TKA. TECHNIQUE: 2D digital imaging was performed. COMPARISON: CR XR KNEE RT 2V AP,LAT from 12/18/2022 FINDINGS: Two views There is stable position alignment of the components of the prosthesis. Area of lucency subjacent to the medial tibial plateau component appears unchanged from 12/18/2022. Correlation with any clinica l signs of loosening recommended. There is no abnormal lucency around the femoral component. IMPRESSION: Tibial component findings as above. Unchanged from 12/18/2022. Correlation with any clinical signs of prosthesis loosening is recommended. DATA REPOSITORY: RADIATION DOSE DELIVERED:
== END 2023-12-20 14:04 | disposition home or self-care (01) ==
LOC: DIORS 14:03
PROVIDERS: PCP Family Medicine; Visit Provider Student in an Organized Health Care Education/Training Program
DX: Z47.1 Aftercare following joint replacement surgery (principal); M25.661 Stiffness of right knee, not elsewhere classified; Z96.651 Presence of right artificial knee joint
CPT/HCPCS: 99213; 73560

== ENCOUNTER 2023-12-24 01:45 | Outpatient (CLI) | payer MEDICARE, SELFPAY ==
[2023-12-24 12:14] LABS: ESR 15 mm/hr (0-30)
[2023-12-24 12:35] LABS: C-Reactive Protein < 0.50 mg/dL (<or=0.5)
== END 2023-12-24 01:46 | disposition home or self-care (01) ==
LOC: LBO 01:45
PROVIDERS: PCP Family Medicine; Visit Provider Student in an Organized Health Care Education/Training Program
DX: Z96.651 Presence of right artificial knee joint (principal); T84.84XA Pain due to internal orthopedic prosthetic devices, implants and grafts, initial encounter
CPT/HCPCS: 36415; 85652; 86140

== ENCOUNTER 2024-01-26 12:17 | Day surgery (SDC) | payer MEDICARE, SELFPAY ==
[2024-01-26] VITALS (14 sets, daily range): BP systolic 115–182; BP diastolic 42–84; PULSE 62–90; RESP 15–25; TEMP 36.4–36.8; O2SAT 94–99; BMI 39.6
--- NOTE | 2024-01-26 07:38 | W.PM.DSUDISC ---
Date of service: 01/26/24 Time of Service: 07:38 Discharge Plan Disposition Patient Disposition: Home Condition: Good Discharge Details Reason For Visit: R Knee Arthroscopy Attending Provider: Lucian Barnard Primary Care Provider: Mike Hernandez Home Meds and New Rx's Prescriptions: New acetaminophen 500 mg tablet 1,000 mg PO TID Qty: 90 0RF hydrocodone-acetaminophen 5-325 mg tablet 1 tab PO Q6H PRN (Reason: pain) Qty: 6 0RF Continued multivitamin [Daily Multi-Vitamin] tablet 1 tab PO DAILY ascorbic acid (vitamin C) 250 mg tablet,chewable 250 mg PO DAILY lisinopril 40 mg tablet 40 mg PO DAILY ICaps AREDS2 250 mg-200 unit -12.5 mg-1 mg capsule 1 cap PO DAILY magnesium oxide 500 mg tablet 500 mg PO DAILY omega 9-vgl-dxt-fish oil [Fish Oil] 1,000 mg (120 mg-180 mg) capsule 1 cap PO DAILY naproxen sodium 220 mg capsule 220 mg PO BID PRN calcium lactate 100 mg calcium tablet 100 mg PO DAILY Discharge Instructions Stand Alone Forms: Anesthesia Discharge Inst., Crutch Training Instructions, Siri Browne (JEFF), Akil Knee Arthroscopy Referrals: Lucian Barnard MD [ [facility] STAFF PHYSICIAN] - 02/07/24 10:45 am Equipment/Supplies: Partial Weight Bearing Crutches Activity:: Activity as Tolerated Remove Dressings/Wound Care:: 72 hours Shower/Bathe:: 72 hours Diet:: As Tolerated Discharge Orders Discharge Orders: Discharge Order (Routine); Ordered 01/26/24 Ordered By: Joe Plascencia
--- NOTE | 2024-01-26 12:06 | W.ANESPRE ---
General Info Date of Service Date Performed: 01/26/24 Height: 5 ft 5 in Weight: 107.955 kg Body Mass Index (BMI): 39.6 Surgical Procedure: Operation Date: 01/26/24 13:25 Proposed Procedure Side Surgeon p Knee Arthroscopy Synovectomy Right Lucian Barnard MD Meds Allergies and Home Medications Allergies Allergy/AdvReac Type Severity Reaction Status Date / Time No Known Allergies Allergy Verified 01/26/24 13:07 Home Medication ?Medication ?Instructions ?Recorded ascorbic acid (vitamin C) 250 mg 250 mg PO DAILY 05/06/18 chewable tablet lisinopril 40 mg tablet 40 mg PO DAILY 05/06/18 multivitamin (Daily Multi-Vitamin 1 tab PO DAILY 05/06/18 tablet) magnesium oxide 500 mg PO DAILY 10/02/21 omega 3-lrn-xxu-fish oil 1,000 mg 1 cap PO DAILY 10/02/21 (120 mg-180 mg) capsule (Fish Oil) vit C 250 mg-vit E 200 unit-zinc 1 cap PO DAILY 10/02/21 ox 12.5 ze-qryasa-akpzbu-zeax capsule (ICaps AREDS2) calcium lactate 100 mg calcium 100 mg PO DAILY 10/21/23 tablet naproxen sodium 220 mg capsule 220 mg PO BID PRN 10/21/23 acetaminophen 500 mg tablet 1,000 mg (2 x 500 mg) PO TID #90 01/26/24 tabs hydrocodone 5 mg-acetaminophen 325 1 tab PO Q6H PRN pain #6 tabs 01/26/24 mg tablet Current Visit Medications: Current Medications Generic Name Dose Route Start Last Admin Trade Name Yomiq PRN Reason Stop Dose Admin Acetaminophen 1,000 mg 01/26/24 06:00 Acetaminophen 500 Mg Tab PO 01/26/24 23:59 PREOP GERARDO Acetaminophen 650 mg 01/26/24 07:37 Acetaminophen 325 Mg Tab PO 02/25/24 07:36 Q4H PRN PRN Hydrocodone Bitart/Acetaminophen 0 tab 01/26/24 07:37 Hydrocodone 5/Acetaminophen 325 Tab PO 02/25/24 07:36 Q3H PRN PRN Pain Celecoxib 400 mg 01/26/24 06:00 Celecoxib 200 Mg Cap PO 01/26/24 23:59 PREOP GERARDO Ringer's Solution 1,000 mls @ 80 mls/hr 01/26/24 06:00 IV 01/26/24 23:59 INFUSION GERARDO Cefazolin Sodium/Dextrose 2 gm in 50 mls @ 100 mls/hr 01/26/24 06:00 Ancef Duplex IVPB 01/26/24 23:59 PREOP GERARDO Tranexamic Acid/Sodium Chloride 1,000 mg in 100 mls @ 600 mls/hr 01/26/24 06:00 IVPB 01/26/24 23:59 PREOP GERARDO IV Miscellaneous Supplies 1 each 01/26/24 06:00 Iv Access IV 01/26/24 23:59 DIRECTED GERARDO Sodium Chloride 0 ml 01/26/24 06:00 Normal Saline Flush 10 Ml Syr IV 01/26/24 23:59 PRN PRN Sodium Chloride 0 ml 01/26/24 06:00 Normal Saline 10 Ml Vial IJ 01/26/24 23:59 DIRECTED PRN Sterile Water 0 ml 01/26/24 06:00 Water,Injection,Sterile 10 Ml Vial IJ 01/26/24 23:59 DIRECTED PRN PFSH Active Problems Active Problems: Problem Status Onset Code Arthrofibrosis of total knee arthroplasty Acute T84.82XA History of total right knee replacement Acute 12/16/21 Z96.651 Primary osteoarthritis of left knee Acute M17.12 Hypertension Chronic I10 Family history of ovarian cancer Acute Z80.41 Pelvic pain Acute R10.2 Medical History Medical History Comments:: pt's daughter had PONV Surgical History Surgical History Ildefonso's deformity Unsure which side Prior to Status post arthroscopy of right shoulder Reports having bone spurs removed S/P appendectomy Tobacco Smoking/Tobacco Use Status: Never Alcohol Alcohol Intake: current Alcohol intake frequency: holidays/special occasions only Alcohol type: wine Substance Use Substance use: Never Substance use type: does not use Prental History History 2 Para 2 Hx # Term Pregnancies Multiple births Hx # Pregnancies Ectopic pregnancies AB induced Hx Number of Living Children AB spontaneous Vital Signs and Lab Results Vital Signs Most Recent Vital Signs in EMR: Temp Pulse Resp BP Pulse Ox 36.8 C 90 20 182/84 H 97 01/26/24 12:45 01/26/24 12:45 01/26/24 12:45 01/26/24 12:45 01/26/24 12:45 Lab Results Blood Type / Crossmatch: No Data to Display Complete Blood Count: No Data to Display Complete Metabolic Panel: No Data to Display Liver Function Panel: No Data to Display Coagulation Panel: No Data to Display Cardiac Panel: No Data to Display Arterial Blood Gas: No Data to Display Venous Blood Gas: No Data to Display Pancreas Panel: No Data to Display Thyroid Panel: No Data to Display Infectious Disease: No Data to Display Blood Cultures: No Data to Display Toxicology Panel: No Data to Display Anesthesia Assessment and Plan Anesthesia History Personal History: PONV and Delayed Emergence Family History: No Family History of Anesthesia Complications Exercise Tolerance Exercise Tolerance: Metabolic Equivalents>4 Cardiac & Pulmonary Exam Cardiac Exam: Normal S1/S2 Heart Sounds Pulmonary Exam: Clear Bilateral Breath Sounds Implantable Cardiac Device Does patient have a Pacemaker or an ICD?: No Airway Exam Known Difficult Airway: No Mallampati Class: 3 Mouth Opening: Narrow (< 3cm) Thyromental Distance: Greater than 3 cm Neck Range of Motion: Full ROM Neck Circumference: Normal Teeth Condition: Normal Dentition ASA Classification ASA Score: ASA 3 Emergency Case?: No NPO Status NPO Status: NPO Clears >2 hours, Solids >8 hours Anesthesia Plan Resuscitation Status: Full Code Anesthesia Technique: General Anesthesia Airway Planned: LMA Monitors Used: Standard Monitors Preoperative Comments:: 76 yo female for knee replacement. States she wakes slowly from anesthesia and has had issues with PONV in the past. She is concerned with post operative cognitive issues/dementia. Sig PMHx: HTN (lisinopril, none today. checked BP at home and runs 130-140/), never smoker, occ EtOH. denies major. Previous Anes: - TKA, spinal, chloroprocaine, prop sedation. laryngospasm broken with prop, OPA, and ventilation. States she had PONV discussed risks, benifits of spinal vs general. She is not interested in recalling the procedure and would like to be a GA. Discussed post operative cognitive decline and would like to attempt to stick with a mainly propofol anesthetic with dexmed.
--- NOTE | 2024-01-26 12:37 | W.PREOPHP ---
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 This has been an ongoing problem since the time of the replacement. She does have some pain associated with the however, the most likely diagnosis is arthrofibrosis which is leading to pain as she struggles for any range of motion. She is limited to no more than about 85 degrees of flexion at best. Given her ongoing symptoms and their limitations I do offer arthroscopic synovectomy with manipulation. I reviewed the technical details of the surgery. I discussed the risk to include recurrence, infection, pain, stiffness. Despite these risk, she elects to proceed. History of Present Illness History of Present Illness Chief Complaint: Left Knee Pain and Stiffness Narrative: Rosa is a 78-year-old female who is about 2 years status post left knee replacement. Unfortunate, she continues have some pain and stiffness about the left knee. Please see the previous office notes for complete detailed history. The stiffness is limiting her ability to function. She does have some pain about the knee but the limitation of motion is her greatest complaint. She had an inflammatory workup which was negative for infection. She had no overt signs of loosening on her clinical history or on the x-rays. She has done exhaustive amounts of physical therapy. She denies any new symptoms. She denies any chest pain or shortness of breath. Review of Systems All systems reviewed & are unremarkable except as noted in HPI and below PFSH All Active Problems Arthrofibrosis of total knee arthroplasty (Acute) History of total right knee replacement (Acute 12/16/21) Primary osteoarthritis of left knee (Acute) Hypertension (Chronic) Family history of ovarian cancer (Acute) Mother at 85 Pelvic pain (Acute) Surgical History Ildefonso's deformity Unsure which side Prior to Status post arthroscopy of right shoulder Reports having bone spurs removed S/P appendectomy Family History Mother Ovarian cancer Father Heart disease - [place] Brother Diabetes Brother Diabetes Heart disease Social History Smoking/Tobacco Use Status: Never Smoking risk assessment performed?: Yes Alcohol Intake: current Alcohol Intake frequency: holidays/special occasions only Alcohol type: wine Drug use: Never Substance use type: does not use Housing: house current occupation: Retired teacher Current gender identity: female Do you feel safe at home: Yes Do you feel safe in your relationship?: Yes History History 2 Para 2 Hx # Term Pregnancies Multiple births Hx # Pregnancies Ectopic pregnancies AB induced Hx Number of Living Children AB spontaneous Meds Allergies and Home Medications Allergies Allergy/AdvReac Type Severity Reaction Status Date / Time No Known Allergies Allergy Verified 01/26/24 13:07 Home Medications ?Medication ?Instructions ?Recorded ?Confirmed ?Type ascorbic acid (vitamin C) 250 mg 250 mg PO DAILY 05/06/18 01/26/24 History chewable tablet lisinopril 40 mg tablet 40 mg PO DAILY 05/06/18 01/26/24 History multivitamin (Daily Multi-Vitamin 1 tab PO DAILY 05/06/18 01/26/24 History tablet) magnesium oxide 500 mg PO DAILY 10/02/21 01/26/24 History omega 7-htl-ana-fish oil 1,000 mg 1 cap PO DAILY 10/02/21 01/26/24 History (120 mg-180 mg) capsule (Fish Oil) vit C 250 mg-vit E 200 unit-zinc 1 cap PO DAILY 10/02/21 01/26/24 History ox 12.5 yj-xfzxzl-hwcjjc-zeax capsule (ICaps AREDS2) calcium lactate 100 mg calcium 100 mg PO DAILY 10/21/23 01/26/24 History tablet naproxen sodium 220 mg capsule 220 mg PO BID PRN 10/21/23 01/26/24 History acetaminophen 500 mg tablet 1,000 mg (2 x 500 mg) PO TID #90 01/26/24 Rx tabs hydrocodone 5 mg-acetaminophen 325 1 tab PO Q6H PRN pain #6 tabs 01/26/24 Rx mg tablet Exam Const General: cooperative, healthy appearing, comfortable and no acute distress Resp Effort & Inspection: normal respiratory effort Auscultation: clear to auscultation bilaterally Cardio Rate: regular rate Rhythm: regular rhythm
[2024-01-26] MEDS: Acetaminophen 500 MG TAB 1000 MG PO (13:14)
[2024-01-26] MEDS: Celecoxib 200 MG CAP 400 MG PO (13:15)
[2024-01-26] MEDS: Lactated Ringers 1,000 ML 80 ML IV (13:33)
[2024-01-26] MEDS: ceFAZolin 2 GM/50 ML BAG IVPB (14:28)
[2024-01-26] MEDS: TRANEXAMIC ACID/SOD. CHL. 1,000 MG/100 ML BAG 600 MG IVPB (14:35)
[2024-01-26] MEDS: EPINEPHrine 10 MG/10 ML ML (14:46)
[2024-01-26] MEDS: Bupivacaine 0.5% Pres-Free 30 ML VIAL (14:47)
--- NOTE | 2024-01-26 15:05 | ROE_ITS ---
Date of service: 01/26/24 Time of Service: 14:30 Operative Note Operative Note DATE OF PROCEDURE: 01/26/24 PRE-OP DIAGNOSIS: Arthrofibrosis of Knee Replacement - RIGHT POST-OP DIAGNOSIS: same PROCEDURE: Arthroscopic Synovectomy of 3 Compartments with Manipulation - RIGHT Knee SURGEON: Lucian Barnard ANESTHESIA TYPE: General LMA/ETT Refer to Anesthesia Record ESTIMATED BLOOD LOSS: 0 PATHOLOGY: none sent COMPLICATIONS: None Patient was transported to: PACU Patient's condition: stable Indications: I have seen Rosa in clinic for symptoms of arthrofibrosis of the knee following knee replacement surgery. Nonoperative measures were exhausted but disability due to lack of motion persisted. I discussed knee arthroscopy with synovectomy with maniuplation with the patient. I reviewed the risks of the procedure to include, but not limited to, bleeding, infection, pain, continued stiffness, recurrence, blood clot. Despite these risks, the patient elected to proceed. Findings: Preoperative Range of Motion: Flexion: 80 Extension:0 Postoperative Range of Motion: Flexion:120 Extension:0 Procedure Description: Rosa was greeted in the preoperative holding area where the correct side was identified and marked. The consent was reviewed with the patient and signed. The history and physical was updated. All questions were answered. She was taken back to the operating room. The patient was placed into the supine position on the operating room table. All bony prominences were well padded. Prophylactic antibiotics in the form of Cefazolin were administered. Preoperative range of motion was assessed as 0 - 80. The right leg was then prepped with Chloraprep and draped in a standard fashion with stockinette and extremity drape. A timeout to confirm correct identity, side and site, proc edure, allergies, anesthesia, and medical concerns was performed. The leg was placed into a pneumatic leg burrows, [id number]. A standard lateral portal was made at the lateral border of the patella tendon in line with the inferior pole of the patella, soft spot. The skin and deep tissue was incised sharply and the blunt trochar was inserted atraumatically. At this point had visualization of the femoral component. A superolateral portal was then established with spinal needle localization just superior and lateral to the patella. A knife was taken down through the skin and soft tissue to enter the knee joint. Starting in the superior compartment above the femoral component and anterior to the femur I released all scarring between the anterior femoral synovium and the overlying extensor mechanism. This was taken through all of any noticeable scar tissue until the superior patellar pouch was fully released and mobile. This resection was carried out mostly with electrocautery as well as shaver. Once this was released fully from lateral to medial superiorly I then continue working down the lateral gutter. All scar tissue in the lateral gutter was released so there is normal space and movement between the capsular tissues and the edge of the femoral component and femur. This was taken down through the lateral gutter such that I was able to identify the polyethylene to its posterior corner. Once again, all scar tissue in this area was resected so the polyethylene was easily visible and there is no interposed tissue in the back or the polyethylene was identified. I think continue to work anteriorly. I then was able to come across the top of the knee and around the patella and removing any excessive scar tissue seen around the patella and working medially into the gutter. There is not as much scar tissue seen in the medial aspect of the knee and I was able to freely see the gutter between the capsule and the polyethylene and therefore did not proceed with making any medial portal. I then used the shaver to remove any other excessive scar tissue or debris seen within the knee. The knee was thoroughly irrigated with the arthroscopic fluid on high flow and pressure. Inflow was stopped and excess fluid was removed. The leg was removed from the spider leg burrows and manipulation was performed. I first push the knee into flexion and was able to obtain 120 degrees. The wounds were closed with 4-0 Nylon. 0.5% bupivacaine was injected around the portal sites and into the knee. The wounds were dressed with Xeroform, 4x4 gauze, ABD pad, Kerlix and an JOSELO wrap. A cryo-cuff was applied. The patient tolerated the procedure well and was returned to the Same Day Surgery area in a stable condition suffering no known complication..
--- NOTE | 2024-01-26 15:39 | W.ANESPOSTOP ---
Postoperative Evaluation Date, Time and Location Date Performed: 01/26/24 Time Performed: 15:39 Patient Location: PACU Vital Signs Most Recent Imported Vital Signs: Most Recent Vital Signs Temp Pulse Resp BP Pulse Ox 36.6 C 67 16 119/67 95 01/26/24 15:36 01/26/24 15:35 01/26/24 15:35 01/26/24 15:35 01/26/24 15:35 Pain Score Most Recent Pain Score: Most Recent Pain Score Pain Level 2 01/26/24 15:36 Assessment Mental Status: Awake (Alert & Oriented to Patient Baseline) Airway and Respiratory Function: Patent airway with normal (patient baseline) respiratory exam Cardiovascular Function: Hemodynamically Stable Hydration Status: Adequately Hydrated Nausea & Vomiting: No Nausea or Vomiting Pain: Pt. Denies Any Pain Peripheral Nerve Block: Patient did not receive a nerve block
--- NOTE | 2024-01-26 16:43 | W.ANESPOSTOP ---
Postoperative Evaluation Date, Time and Location Date Performed: 01/26/24 Time Performed: 16:43 Patient Location: Day Surgery Unit Vital Signs Most Recent Imported Vital Signs: Most Recent Vital Signs Temp Pulse Resp BP Pulse Ox 36.5 C 70 16 131/66 94 01/26/24 16:16 01/26/24 16:16 01/26/24 16:16 01/26/24 16:16 01/26/24 16:16 Most Recent Vital Signs Temp Pulse Resp BP Pulse Ox 36.6 C 67 16 119/67 95 01/26/24 15:36 01/26/24 15:35 01/26/24 15:35 01/26/24 15:35 01/26/24 15:35 Pain Score Most Recent Pain Score: Most Recent Pain Score Pain Level 2 01/26/24 16:16 Assessment Mental Status: Awake (Alert & Oriented to Patient Baseline) Airway and Respiratory Function: Patent airway with normal (patient baseline) respiratory exam Cardiovascular Function: Hemodynamically Stable Hydration Status: Adequately Hydrated Nausea & Vomiting: No Nausea or Vomiting Pain: Pain is tolerable per patient Peripheral Nerve Block: Patient did not receive a nerve block
== END 2024-01-26 17:25 | disposition home or self-care (01) ==
LOC: SUR 12:18
PROVIDERS: PCP Family Medicine; Visit Provider Student in an Organized Health Care Education/Training Program
PROC: (CPT 29870; principal; 2024-01-26 13:15)
DX: T84.82XA Fibrosis due to internal orthopedic prosthetic devices, implants and grafts, initial encounter (principal)
CPT/HCPCS: 29876; J0665; J0690; J1100; J2371; J2405; J2704; J3010

== ENCOUNTER → 2024-02-07 10:41 | Outpatient (BNVA) | payer MEDICARE, SELFPAY | PROVIDERS: PCP Family Medicine; Referring Provider Family Medicine; Visit Provider Student in an Organized Health Care Education/Training Program | DX: Z96.651 Presence of right artificial knee joint (principal); T84.82XA Fibrosis due to internal orthopedic prosthetic devices, implants and grafts, initial encounter | CPT/HCPCS: 99024 ==

== ENCOUNTER → 2024-03-06 10:09 | Outpatient (BNVA) | payer MEDICARE, SELFPAY | PROVIDERS: PCP Family Medicine; Referring Provider Family Medicine; Visit Provider Student in an Organized Health Care Education/Training Program | DX: Z47.1 Aftercare following joint replacement surgery (principal); T84.82XA Fibrosis due to internal orthopedic prosthetic devices, implants and grafts, initial encounter; Z96.651 Presence of right artificial knee joint | CPT/HCPCS: 99024 ==

== ENCOUNTER → 2024-04-17 09:49 | Outpatient (BNVA) | payer MEDICARE, SELFPAY | PROVIDERS: PCP Family Medicine; Referring Provider Family Medicine; Visit Provider Physician Assistant | DX: Z47.1 Aftercare following joint replacement surgery (principal); Z96.651 Presence of right artificial knee joint; M25.562 Pain in left knee; T84.82XD Fibrosis due to internal orthopedic prosthetic devices, implants and grafts, subsequent encounter; M17.12 Unilateral primary osteoarthritis, left knee | CPT/HCPCS: 20610; 99024; J1010 ==

== ENCOUNTER 2024-12-11 09:56 | Outpatient (CLI) | payer MEDICARE, SELFPAY ==
--- NOTE | 2024-12-11 13:30 | DI.US_ITS ---
APPROVED REPORT EXAM: Comprehensive 2D, Doppler, and color-flow Echocardiogram Patient Location: Out-Patient Manager Work: Lauren Suarez RDCS (AE) Indications: Localized edema, Murmur Other Information Study Quality: Fair. Technically limited study due to body habitus. Conclusion Normal left ventricular wall thickness and chamber size. Ejection fraction is 60%. Wall motion is normal Normal right ventricular size and function Mildly dilated left atrium. Normal right atrial size Trileaflet aortic valve with trace regurgitation Mitral annular calcification. Mild mitral regurgitation Estimated right ventricular systolic pressure is 32 mmHg Wall motion Left Ventricle The left ventricle is normal size. The left ventricular systolic function is normal. The left ventricular ejection fraction is within the normal range. There is normal left ventricular wall thickness. There is normal LV segmental wall motion. There is no ventricular septal defect visualized. LVEF is 60%. Right Ventricle Right ventricle is grossly normal in size. Right ventricular systolic function is grossly normal. Atria Left atrium is mildly dilated. The right atrium size is normal. The interatrial septum is intact with no evidence for an atrial septal defect. Aortic Valve Aortic valve is trileaflet. No hemodynamically significant valvular aortic stenosis. Trace aortic regurgitation. Mitral Valve Moderate mitral annular calcification. No evidence of mitral valve stenosis. Mild mitral regurgitation. Tricuspid Valve The tricuspid valve is normal in structure. There is no tricuspid valve stenosis. Trace tricuspid regurgitation. The RVSP is 32.2 mmHg. Pulmonic Valve The pulmonary valve is normal in structure. There is no pulmonic valvular stenosis. There is no pulmonic valvular regurgitation. Great Vessels The aortic root is normal in size. The ascending aorta is normal in size. Aortic arch is not well visualized. The IVC collapses <50% with inspiration. Pericardium There is no pericardial effusion. 2D Dimensions IVSD d PLAX 0.90 cm F: 0.6-1.0 Ao Root d 2.70 cm F: 2.7 - 3.3 LVPW d PLAX 0.95 cm F: 0.6 - 1.0 Ao Asc Diam d 3.07 cm F: 2.3 - 3.1 LVID d PLAX 5.10 cm F: 3.8 - 5.2 LVDs 3.50 cm F: 2.2 - 3.5 LV EF Teichholz 59.4 % FS 31.72 % LV EDV (Teich) 123.0 mL LV ESV (Teich) 49.9 mL M-Mode TAPSE 3.03 cm (M/F) >1.7 Auto EF LV EDV A4C 100.7 mL LV EDV A2C 138.5 mL LV EDV BP 119.3 mL LV ESV A4C 42.6 mL LV ESV A2C 54.9 mL LV ESV BP 48.5 mL LVEF(%) A4C 57.7 % LVEF(%) A2C 60.3 % LVEF(%) BP 59.3 % LV SV A4C 58.1 ml LV SV A2C 83.6 ml LV SV BP 70.8 ml LV CO A4C 3.8 L/min LV CO A2C 5.2 L/min LV CO BP 4.5 L/min HR A4C 65.10 BPM HR A2C 61.97 BPM LV EDV Index (BP) LA Volume LA Length A4C 5.9 cm LA Length A2C 5.6 cm LA Area A4C s 25.91 cm2 LA Area A2C s 21.51 cm2 LA Vol A4C A-L 96.55 mL LA Vol A2C A-L 69.62 mL LA Vol Biplane A-L 83.9 mL LA Vol/BSA A4C A-L LA Vol/BSA A2C A-L LA Vol/BSA BP A-L 40.1 mL/m2 LA Vol A4C MOD 92.5 mL LA Vol A2C MOD 68.6 mL LA Vol BP MOD 80.7 mL RA Volume RA Area A4C 13.0 cm2 RA ESV A4C (A-L) 32.7mL RA Vol/BSA A4C A-L RA Length A4C 4.4 cm RA ESV A4C (MOD) 29.5mL LV Diastology MV E' medial 0.082 (>0.07 m/s) MV E Vmax 1.03 (0.4-1.3 m/s) MV E/E' MED 12.59 (<14) MV A Vmax 1.40 (0.4-1.3 m/s) MV E' lateral 0.067 (>0.1 m/s) E/A Ratio 0.7 MV E/E' LAT 15.46 (<14) MV E' Average 0.074 m/s MV E/E'(average) 13.88 Aortic Valve AoV Vmax 2.06 m/s LVOT Vmax 1.45 m/s AoV Peak Grad 17.0 mmHg LVOT Peak Grad 8.4 mmHg AoV Area (Vmax) 2.09 cm2 LVOT VTI 0.358 m AoV VTI 0.487 m LVOT Mean Grad 5.8 mmHg AoV Mean Maco. 1.46 m/s LVOT SV 106.41 mL AoV Mean Grad 9.6 mmHg LVOT Diam s 1.90 cm AoV Area (VTI) 2.18 cm2 AV Regurg Peak Gr. 16.99 mmHg Velocity Ratio 0.70 Mitral Valve MV DT 293 (160-240 msec) MV Vmax TIPS 1.49 m/s MV Mean Grad 3.5 (<2mmHg) MV VTI 0.471 m Pulmonary Valve PV Vmax 0.94 (0.5-1.5 m/s) RVOT Vmax 0.90 m/s PV Peak Grad 3.5 mmHg RVOT Peak Gr. 3.2 mmHg PV Mean Maco 0.73 m/s RVOT VTI 0.179 m PV Mean Grad 2.3 mmHg RVOT Mean Gr. 1.9 mmHg Tricuspid Valve RA Pressure 3.00 mmHg TR Vmax 2.70 m/s TV S' 0.20 m/s TR Peak Grad 29.2 mmHg RVSP (TR) 32.2 mmHg
== END 2024-12-11 10:16 ==
LOC: DI 09:57
PROVIDERS: PCP Family Medicine; Visit Provider Internal Medicine Cardiovascular Disease
DX: R60.0 Localized edema (principal); I08.3 Combined rheumatic disorders of mitral, aortic and tricuspid valves
CPT/HCPCS: 93306